=== PATIENT | female | born 1955 | race Caucasian/White ===

== ENCOUNTER 2023-02-25 12:58 | Inpatient (IN) | payer MEDICARE, OTHER ==
--- NOTE | 2023-02-25 13:16 | ED ---
General Adult HPI - General Chief complaint: Fall Stated complaint: Fall, hip fracture Time Seen by Provider: 02/25/23 13:06 Source: EMS Mode of arrival: EMS Limitations: no limitations - History of Present Illness Initial comments: Dictation was produced using [employer] dictation software. please excuse any grammatical, word or spelling errors. Chief Complaint: 67 yo F transferred to Hospital for left hip fracture History of Present Illness: 67-year-old female. She is a poor historian. Allegedly has past medical history of schizophrenia and psychiatric illness. Patient was discovered to have fallen earlier this morning upon waking up. Sister was at home according to transfer documentation and was suspicious that patient had fallen. She was taken to [facility] emergency Department were imaging and blood work was performed. She had a CT brain is negative. She was found to have a normally displaced left surgical left femoral hip fracture. Computed tomography scan of the brain was negative. Patient does not take coagu lation medications. No left hip pain. The ROS documented in this emergency department record has been reviewed and confirmed by me. Those systems with pertinent positive or negative responses have been documented in the HPI. All other systems are other negative and/or noncontributory. - Related Data Home Medications Medication Instructions Recorded Confirmed Benztropine Mesylate [Cogentin] 2 mg PO BID 02/25/23 02/25/23 LORazepam [Ativan] 0.5 mg PO BID 02/25/23 02/25/23 Multivit/Iron Sulf/Folic Acid 1 tab PO DAILY 02/25/23 02/25/23 [Multivitamin with Iron] Vitamin D3/Vitamin K2 (Mk4) 1 tab PO DAILY 02/25/23 02/25/23 [Vitamin K2 Plus D3 Tablet] carBAMazepine [carBAMazepine ER] 300 mg PO QID 02/25/23 02/25/23 haloperidoL [Haldol] 1 mg PO DAILY 02/25/23 02/25/23 haloperidoL [Haldol] 2 mg PO HS 02/25/23 02/25/23 Allergies Allergy/AdvReac Type Severity Reaction Status Date / Time Penicillins Allergy Unknown Verified 02/25/23 14:28 Review of Systems ROS Statement: Those systems with pertinent positive or pertinent negative responses have been documented in the HPI. ROS Other: All systems not noted in ROS Statement are negative. Past Medical History Past Medical History: Unable to Obtain History of Any Multi-Drug Resistant Organisms: Unobtainable Past Surgical History: Unable to Obtain Additional Past Surgical History / Comment(s): Left femoral head fracture Smoking Status: Unknown if ever smoked Past Alcohol Use History: Unable to Obtain Past Drug Use History: Unable to Obtain General Exam - General Exam Comments Initial Comments: PHYSICAL EXAM: General Impression: Alert and oriented x3, acute distress secondary to pain HEENT: Normocephalic atraumatic, extra-ocular movements intact, pupils equal and reactive to light bilaterally, mucous membranes moist. Cardiovascular: Heart regular rate and rhythm Chest: Able to complete full sentences, no retractions, no tachypnea Abdomen: abdomen soft, non-tender, non-distended, no organomegaly Musculoskeletal: Pulses present and equal in all extremities, no peripheral edema Motor: no focal deficits noted Neurological: CN II-XII grossly intact, no focal motor or sensory deficits noted Skin: Intact with no visualized rashes Psych: Normal affect and mood Limitations: no limitations Course Vital Signs 02/25/23 02/25/23 13:00 14:18 Temperature 98.5 F Pulse Rate 110 H 119 H Respiratory 16 20 Rate Blood Pressure 140/99 144/94 O2 Sat by Pulse 96 93 L Oximetry Medical Decision Making - Medical Decision Making Was pt. sent in by a medical professional or institution (, PA, GENETICS TEACHER, urgent care, hospital, or halfway...) When possible be specific @ -No Did you speak to anyone other than the patient for history (EMS, parent, family, police, friend...)? What history was obtained from this source @ -No Did you review nursing and triage notes (agree or disagree)? Why? @ -I reviewed and agree with nursing and triage notes Were old charts reviewed (outside hosp., previous admission, EMS record, old EKG, old radiological studies, urgent care reports/EKG's, halfway records)? Report findings @ -No old charts were reviewed Differential Diagnosis (chest pain, altered mental status, abdominal pain women, abdominal pain men, vaginal bleeding, musculoskeletal, weakness, fever, dyspnea, syncope, headache, dizziness, GI bleed, back pain, seizure, CVA, p alpatations, mental health)? @ -not applicable EKG interpreted by me (3pts min.). @ -None done X-rays interpreted by me (1pt min.). @ -Chest x-ray is nonacute. CT interpreted by me (1pt min.). @ -None done U/S interpreted by me (1pt. min.). @ -None done What testing was considered but not performed or refused? (CT, X-rays, U/S, labs)? Why? @ -None What meds were considered but not given or refused? Why? @ -None Did you discuss the management of the patient with other professionals (professionals i.e. , PA, GENETICS TEACHER, lab, RT, psych nurse, social work job titles, electrician helper powerhouse, teacher, investment officer, medical case worker)? Give summary @ -Up with orthopedic surgeon Dr. Grant who will take the patient later on this afternoon and accepting admission. Case discussed with Dr. Olvera who will medical care patient for surgical intervention soon. Was smoking cessation discussed for >3mins.? @ -No Was critical care preformed (if so, how long)? @ -No Were there social determinants of health that impacted care today? How? (Homelessness, low income, unemployed, alcoholism, drug addiction, transportation, low edu. Level, literacy, decrease access to med. care, group home, rehab)? @ -No Was there de-escalation of care discussed even if they declined (Discuss DNR or withdrawal of care, Hospice)? DNR status @ -No What co-morbidities impacted this encounter? (DM, HTN, Smoking, COPD, CAD, Cancer, CVA, ARF, Chemo, Hep., AIDS, mental health diagnosis, sleep apnea, m orbid obesity)? @ -None Was patient admitted / discharged? Hospital course, mention meds given and route, prescriptions, significant lab abnormalities, going to OR and other pertinent info. @ -67-year-old female presents emergency department via transfer from [facility] for left-sided femoral neck fracture. Vital signs stable. Patient be admitted to orthopedic surgery for further care. Undiagnosed new problem with uncertain prognosis? @ -No Drug Therapy requiring intensive monitoring for toxicity (Heparin, Nitro, Insulin, Cardizem)? @ -No Were any procedures done? @ -No Diagnosis/symptom? Acute, or Chronic, or Acute on Chronic? Uncomplicated (without systemic symptoms) or Complicated (systemic symptoms)? @ -hip fracture Side effects of treatment? @ -No Exacerbation, Progression, or Severe Exacerbation? @ -No Poses a threat to life or bodily function? How? (Chest pain, [place], NE, pneumonia, PE, COPD, DKA, ARF, appy, cholecystitis, CVA, Diverticulitis, Homicidal, Suicidal, threat to staff... and all critical care pts) @ -yes - Lab Data Result diagrams: 02/25/23 13:24 02/25/23 13:24 Lab Results 02/25/23 02/25/23 02/25/23 Range/Units 13:24 13:24 13:24 WBC 16.5 H (3.8-10.6) k/uL RBC 3.83 (3.80-5.40) m/uL Hgb 11.9 (11.4-16.0) gm/dL Hct 35.1 (34.0-46.0) % MCV 91.8 (80.0-100.0) fL MCH 31.1 (25.0-35.0) pg MCHC 33.9 (31.0-37.0) g/dL RDW 12.5 (11.5-15.5) % Plt Count 319 (150-450) k/uL MPV 7.1 Neutrophils % 93 % Lymphocytes % 3 % Monocytes % 2 % Eosinophils % 1 % Basophils % 0 % Neutrophils # 15.4 H (1.3-7.7) k/uL Lymphocytes # 0.5 L (1.0-4.8) k/uL Monocytes # 0.4 (0-1.0) k/uL Eosinophils # 0.2 (0-0.7) k/uL Basophils # 0.0 (0-0.2) k/uL PT 11.2 (10.0-12.5) sec INR 1.0 (<1.2) APTT 23.0 (22.0-30.0) sec Sodium 136 L (137-145) mmol/L Potassium 3.6 (3.5-5.1) mmol/L Chloride 100 (98-107) mmol/L Carbon Dioxide 25 (22-30) mmol/L Anion Gap 11 mmol/L BUN 12 (7-17) mg/dL Creatinine 0.41 L (0.52-1.04) mg/dL Est GFR (CKD-EPI)AfAm >90 (>60 ml/min/1.73 sqM) Est GFR (CKD-EPI)NonAf >90 (>60 ml/min/1.73 sqM) Glucose 122 H (74-99) mg/dL Calcium 9.7 (8.4-10.2) mg/dL Disposition Clinical Impression: Hip fracture Disposition: ADMITTED IP TO THIS HOSP Condition: Fair Referrals: Ismael Pardo MD [Primary Care Provider] - 1-2 days Decision Time: 14:29
[2023-02-25 13:48] LABS: Basophils % (A) 0 %; Eosinophils # (A) 0.2 k/uL (0-0.7); Eosinophils % (A) 1 %; HCT 35.1 % (34.0-46.0); HGB 11.9 gm/dL (11.4-16.0); Lymphocytes # (A) 0.5 k/uL (1.0-4.8); Lymphocytes % (A) 3 %; MCH 31.1 pg (25.0-35.0); MCHC 33.9 g/dL (31.0-37.0); MCV 91.8 fL (80.0-100.0); Mean Platelet Volume 7.1; Monocytes # (A) 0.4 k/uL (0-1.0); Monocytes % (A) 2 %; Neutrophils # (A) 15.4 k/uL (1.3-7.7); Neutrophils % (A) 93 %; Platelet Count 319 k/uL (150-450); RBC 3.83 m/uL (3.80-5.40); RDW 12.5 % (11.5-15.5); WBC 16.5 k/uL (3.8-10.6)
[2023-02-25 13:59] LABS: Prothrombin Time 11.2 sec (10.0-12.5)
--- NOTE | 2023-02-25 14:01 | XR ---
EXAMINATION TYPE: XR chest 1V portable DATE OF EXAM: 02/25/2023 1:30 PM CLINICAL INDICATION:Female, 67 years old with history of hip fracture; [facility] COMPARISON: 02/25/2023 TECHNIQUE: XR chest 1V portable Frontal view of the chest. FINDINGS: Lungs/Pleura: There is no evidence of pleural effusion, focal consolidation, or pneumothorax. Pulmonary vascularity: Unremarkable. Heart/mediastinum: Cardiomediastinal silhouette is unremarkable. Musculoskeletal: No acute osseous pathology. IMPRESSION: No acute cardiopulmonary disease/process.
[2023-02-25 14:02] LABS: African American GFR (CKD) >90 (>60 ml/min/1.73 sqM); Anion Gap 11 mmol/L; Blood Urea Nitrogen 12 mg/dL (7-17); Calcium 9.7 mg/dL (8.4-10.2); Carbon Dioxide 25 mmol/L (22-30); Chloride 100 mmol/L (98-107); Glucose 122 mg/dL (74-99); Non-African American GFR(CKD) >90 (>60 ml/min/1.73 sqM); Potassium 3.6 mmol/L (3.5-5.1); Sodium 136 mmol/L (137-145)
[2023-02-25] MEDS ORDERED: HYDROmorphone 1 MG/ML 1 ML SYRINGE IVP STA (14:24)
[2023-02-25] MEDS ORDERED: HYDROmorphone 1 MG/ML 1 ML SYRINGE IVP PRN (14:26)
[2023-02-25] MEDS ORDERED: NALOXONE 0.4 MG/ML 1 ML VIAL IV PRN ×2 (14:26→18:25)
--- NOTE | 2023-02-25 14:42 | P.EN ---
medically stable to proceed for surgery. low cardiovascular risk. sister helps with decision making full consult to follow
[2023-02-25] MEDS: SODIUM CHLORIDE 0.9% 1,000 ML IV SCH ×3 (15:05→22:17)
--- NOTE | 2023-02-25 15:28 | P.HPOR ---
History of Present Illness H&P Date: 02/25/23 The patient is a 67-year-old female with multiple medical problems including schizophrenia and seizure disorder who was accepted as a transfer from an outside facility with a left displaced femoral neck fracture. The history was given by the patient's sister as she is a very poor historian. According to the patient's sister she was at her baseline ambulatory status until this morning when she sustained an unwitnessed ground-level fall and was complaining of left hip pain and an inability to ambulate. She was brought to an outside ER where x-rays showed a displaced femoral neck fracture. At the time of my evaluation she is complaining of left-sided leg pain. At her baseline she lives at home with her sister, is a community ambulator, and does not work outside the home. The family denies prior left hip pain. Past Medical History Past Medical History: Unable to Obtain History of Any Multi-Drug Resistant Organisms: Unobtainable Past Surgical History: Unable to Obtain Additional Past Surgical History / Comment(s): Left femoral head fracture Smoking Status: Unknown if ever smoked Past Alcohol Use History: Unable to Obtain Past Drug Use History: Unable to Obtain Medications and Allergies Home Medications Medication Instructions Recorded Confirmed Type Benztropine Mesylate [Cogentin] 2 mg PO BID 02/25/23 02/25/23 History LORazepam [Ativan] 0.5 mg PO BID 02/25/23 02/25/23 History Multivit/Iron Sulf/Folic Acid 1 tab PO DAILY 02/25/23 02/25/23 History [Multivitamin with Iron] Vitamin D3/Vitamin K2 (Mk4) 1 tab PO DAILY 02/25/23 02/25/23 History [Vitamin K2 Plus D3 Tablet] carBAMazepine [carBAMazepine ER] 300 mg PO QID 02/25/23 02/25/23 History haloperidoL [Haldol] 1 mg PO DAILY 02/25/23 02/25/23 History haloperidoL [Haldol] 2 mg PO HS 02/25/23 02/25/23 History Allergies Allergy/AdvReac Type Severity Reaction Status Date / Time Penicillins Allergy Unknown Verified 02/25/23 14:28 Physical Examination The patient is resting on a hospital gurney. She is alert but is confused and is able to provide minimal history. Her head is normocephalic and atraumatic. She demonstrates nonlabored breathing. Her abdomen is nonobese and nontender. Her upper extremities are without deformity and nontender. Her right lower extremity is without deformity. A focused exam of the left lower extremity was conducted. On inspection there are no overlying skin lesions or areas of ecchymosis. The skin over the anterior aspect of the hip is intact. Left leg is slightly shortened and externally rotated. There is pain with any attempts at passive range of motion of the left hip. Her thigh is soft. Her foot is warm and well-perfused. She seems to be moving her foot up and down. Results X-rays uploaded to our system from outside hospital shows severe osteopenia and a displaced left subcapital femoral neck fracture - Labs Labs: Abnormal Lab Results - Last 24 Hours (Table) 02/25/23 02/25/23 Range/Units 13:24 13:24 WBC 16.5 H (3.8-10.6) k/uL Neutrophils # 15.4 H (1.3-7.7) k/uL Lymphocytes # 0.5 L (1.0-4.8) k/uL Sodium 136 L (137-145) mmol/L Creatinine 0.41 L (0.52-1.04) mg/dL Glucose 122 H (74-99) mg/dL H & H 02/25/23 Range/Units 13:24 Hgb 11.9 (11.4-16.0) gm/dL Hct 35.1 (34.0-46.0) % Coagulation 02/25/23 Range/Units 13:24 INR 1.0 (<1.2) Result Diagrams: 02/25/23 13:24 02/25/23 13:24 Assessment and Plan Assessment: Displaced subcapital femoral neck fracture Schizophrenia Severe osteoporosis Plan: I had a long discussion with the patient's sister regarding treatment options. Given her history of schizophrenia, confusion, severe osteopenia, and low functional demand as well as no antecedent hip pain my recommendation was to perform a direct anterior cemented hip hemiarthroplasty. We discussed the risks and complications of this at length particularly infection, delayed wound healing, periprosthetic fracture, prosthetic hip dislocation, progression of arthritis requiring conversion to total hip arthroplasty, failure to thrive, medical complications, and possibly . We both agreed that given her medical state and history of schizophrenia she would be best served with a hip hemiarthroplasty. She has been cleared by internal medicine and we will plan for surgery later this afternoon. Time with Patient: Greater than 30
[2023-02-25] MEDS ORDERED: LACTATED RINGERS 1,000 ML IV ONE ×2 (16:00→17:58)
[2023-02-25] MEDS ORDERED: TRANEXAMIC 1,000 MG/100ML-NACL 1,000 MG in SALINE 1 100ML.BAG IVPB STA ×2 (16:17→16:19)
[2023-02-25] MEDS ORDERED: ROCURONIUM 10 MG/ML (5 ML VIAL) IV ONE (16:22)
[2023-02-25] MEDS ORDERED: NEOSTIGMINE 1 MG/ML 10 ML VIAL ONE (16:22)
[2023-02-25] MEDS ORDERED: SUCCINYLCHOLINE CHLORIDE 200 MG/10 ML VIAL IV ONE (16:22)
[2023-02-25] MEDS ORDERED: fentaNYL (PF) 50 MCG/ML 2 ML AMP ONE (16:22)
[2023-02-25] MEDS ORDERED: LIDOCAINE 1% INJ 10MG/ML (20 ML MDV) ONE (16:22)
[2023-02-25] MEDS ORDERED: TRANEXAMIC 1,000 MG/100ML-NACL PREMIX BAG ONE (16:22)
[2023-02-25] MEDS ORDERED: PROPOFOL 10 MG/ML 20 ML VIAL IV ONE (16:22)
[2023-02-25] MEDS ORDERED: GLYCOPYRROLATE 0.2 MG/ML 2 ML VIAL ONE (16:22)
[2023-02-25] MEDS ORDERED: PHENYLEPHRINE-0.9% NACL SYG 1,000 MCG/10 ML SYRINGE ONE (16:22)
[2023-02-25] MEDS ORDERED: SODIUM CHLORIDE 0.9% 50 ML with ceFAZolin 2,000 MG IV ONE ×2 (16:45)
--- NOTE | 2023-02-25 17:03 | P.CONS ---
History of Present Illness - Reason for Consult Consult date: 02/25/23 Medical management Requesting physician: Nubia Valenzuela - Chief Complaint Fall - History of Present Illness This is a 67-year-old patient, follows with Dr. Pardo. Patient's sister is at the bedside. Also the POA. He is most a history. is also present. Patient lives the sister. Has a diagnosis schizophrenia possibly manic depressive bipolar. She is being managed previously by psychiatrist now by an aspect raised her. Normally able to get from the house and able to feed does help. Able to answer some simple questions. Patient fell up from bed this morning. It was discovered to have a left hip fracture. Patient other anxious right now not able to really answer questions. Complaining of pain in the left hip. No cardiac or respiratory history. No smoking history. According to his sister patient's psychiatrist symptoms are well-controlled on her current medications. Patient was transferred from [facility] facility that she has left neck femoral fracture with some displacement. Review of systems: GEN.: Tired EYES: None HEENT: None NECK: None RESPIRATORY: None CARDIOVASCULAR: None GASTROINTESTINAL: None GENITOURINARY: None MUSCULOSKELETAL: Joint pains LYMPHATICS: None HEMATOLOGICAL: None PSYCHIATRY: Anxious NEUROLOGICAL: None Social history: No smoking or alcohol. Lives with her sister and [id number]. Physical examination: VITAL SIGNS: 98.5, 110, 16, 140/99, 96% room air GENERAL: BMI 20.3, sitting up but anxious. EYES: Pupils equal. Conjunctiva normal. HEENT: External appearance of nose and ears normal, oral cavity grossly normal. NECK: JVD not raised; masses not palpable. HEART: First and second heart sounds are normal; no edema. LUNGS: Respiratory rate normal; clear to auscultation. ABDOMEN: Soft, nontender, liver spleen not palpable, no masses palpable. PSYCH: Not able to assess patient's extremely anxiousl. MUSCULOSKELETAL:No Clubbing/cyanosis;muscles-grossly intact. OA. Decreased range of motion left hip NEUROLOGICAL: Cranial nerves grossly intact; no facial asymmetry, power and sensation grossly intact. LYMPHATICS: No lymph nodes palpable in the axilla and neck INVESTIGATIONS, reviewed in the clinical context: White count 16.5 hemoglobin 11.9 platelets 319 sodium 136 potassium 3.6 BUN 12 creatinine 0.41 EKG tracing personally reviewed by me-sinus tachycardia rate 114. ST-T wave changes. Chest x-ray film personally reviewed by me-some hyperinflation Assessment and plan: -Left femoral neck fracture secondary to ground level fall. Unwitnessed. -Schizophrenia and possible manic depression Patient is followed by psychiatry PIPELINE OPERATOR Carbamazepine ER, Cogentin, Haldol, Ativan -Primary osteoarthritis Pain medication noted -POA, patient's sister Karyn Patient is a low risk for any perioperative cardiovascular risk. No cardiac medications to surgery. Denies any cardiac or respiratory symptoms or history. Care was discussed with the patient cysts of the bedside. Thank you Past Medical History Past Medical History: Unable to Obtain History of Any Multi-Drug Resistant Organisms: Unobtainable Past Surgical History: Unable to Obtain Additional Past Surgical History / Comment(s): Left femoral head fracture Smoking Status: Unknown if ever smoked Past Alcohol Use History: Unable to Obtain Past Drug Use History: Unable to Obtain Medications and Allergies Home Medications Medication Instructions Recorded Confirmed Type Benztropine Mesylate [Cogentin] 2 mg PO BID 02/25/23 02/25/23 History LORazepam [Ativan] 0.5 mg PO BID 02/25/23 02/25/23 History Multivit/Iron Sulf/Folic Acid 1 tab PO DAILY 02/25/23 02/25/23 History [Multivitamin with Iron] Vitamin D3/Vitamin K2 (Mk4) 1 tab PO DAILY 02/25/23 02/25/23 History [Vitamin K2 Plus D3 Tablet] carBAMazepine [carBAMazepine ER] 300 mg PO QID 02/25/23 02/25/23 History haloperidoL [Haldol] 1 mg PO DAILY 02/25/23 02/25/23 History haloperidoL [Haldol] 2 mg PO HS 02/25/23 02/25/23 History Allergies Allergy/AdvReac Type Severity Reaction Status Date / Time Penicillins Allergy Unknown Verified 02/25/23 14:28 Physical Exam Vitals: Vital Signs Temp Pulse Pulse Resp BP BP Pulse Ox 02/25/23 16:00 100.1 F H 106 H 16 128/86 91 L 02/25/23 15:05 125 H 18 136/96 93 L 02/25/23 14:18 119 H 20 144/94 93 L 02/25/23 13:00 98.5 F 110 H 16 140/99 96 Intake and Output 02/25/23 02/25/23 02/25/23 06:59 14:59 22:59 Intake Total 100 Balance 100 Intake: IV 100 Other: Weight 68.039 kg Results CBC & Chem 7: 02/25/23 13:24 02/25/23 13:24 Labs: Abnormal Lab Results - Last 24 Hours (Table) 02/25/23 02/25/23 Range/Units 13:24 13:24 WBC 16.5 H (3.8-10.6) k/uL Neutrophils # 15.4 H (1.3-7.7) k/uL Lymphocytes # 0.5 L (1.0-4.8) k/uL Sodium 136 L (137-145) mmol/L Creatinine 0.41 L (0.52-1.04) mg/dL Glucose 122 H (74-99) mg/dL
[2023-02-25] MEDS ORDERED: EPINEPHrine 2 MG in SODIUM CHLORIDE 0.9% 200 ML IV ONE (17:05)
[2023-02-25] MEDS: ROPIVACAINE/EPI/CLONIDINE/KET 50 ML SYRINGE MISCELLANE PRN ×2 (17:06→17:50)
[2023-02-25] MEDS ORDERED: MAGNESIUM HYDROXIDE 2,400 MG/30 ML CUP PO PRN (18:25)
[2023-02-25] MEDS ORDERED: HYDROcodone/APAP 5-325MG 1 EACH TAB PO PRN (18:25)
[2023-02-25] MEDS ORDERED: diazePAM 5 MG TAB PO PRN (18:25)
[2023-02-25] MEDS ORDERED: HYDROmorphone 0.5 MG/0.5 ML SYRINGE IVP PRN (18:25)
--- NOTE | 2023-02-25 18:25 | P.OP ---
Date of Procedure: 02/25/23 Preoperative Diagnosis: 1. Left displaced femoral neck fracture 2. Schizophrenia Postoperative Diagnosis: Same Procedure(s) Performed: Left direct anterior hip hemiarthroplasty Implants: [employer] accolade C size #4 standard offset, 56 mm outer diameter, 28 mm inner diameter bipolar femoral head with a -4 mm neck Anesthesia: VERNON Surgeon: Luis Enrique Grant Estimated Blood Loss (ml): 100 IV fluids (ml): 1,000 Pathology: other (Femoral head to pathology) Condition: stable Disposition: PACU Indications for Procedure: I met with the patient and their family to discuss treatment options. The patient has a displaced femoral neck fracture and based on their age, activity level, and medical comorbidities I recommended a hip hemiarthroplasty to facilitate early mobilization. My recommendation was to perform the hemiarthrop lasty through a direct anterior approach to help lower the risk of dislocation and improve postoperative recovery and use cemented fixation of the femoral component to reduce the risk of fracture and postoperative thigh pain. We discussed the potential risks and complications of a hemiarthroplasty for displaced femoral neck fracture at length. Risks discussed include are certainly not limited to risks from anesthesia, superficial infection requiring local wound care and possibly surgical debridement, deep periprosthetic joint infection and the treatment for this, damage to local blood vessels or nerves particularly the lateral femoral cutaneous nerve, intraoperative fracture, postoperative periprosthetic fracture, leg length discrepancy, hip dislocation, aseptic loosening, groin pain, thigh pain, progression of arthritis requiring conversion to total hip arthroplasty, complications related to cementing the component, an inability to regain preinjury level of function, DVT, PE, acute coronary event, stroke, pneumonia, urinary tract infection, failure to thrive, and possibly . The patient and their family understand that while these are the most common complications other less common complications are possible. They provided their verbal and written consent to go forward with surgery. Operative Findings: Displaced subcapital femoral neck fracture with acute hemarthrosis. Exceedingly poor bone quality Description of Procedure: The patient was identified in the preoperative holding area and the correct hip was marked with my initials. I reviewed the procedure and consent with the patient. All of their questions were answered. The patient was then brought back into the operating room by anesthesia. While on the [facility] anesthesia was administered by the anesthesia team. Preoperative antibiotics and tranexamic acid were also given. After the patient was under anesthesia I examined their ankles to determine their preoperative leg length discrepancy. The skin over the anterior aspect of the hip was shaved to remove hair over the site of planned incision. Both feet and ankles were padded with webril and boots for the [place] were applied. The patient was then carefully transferred onto the [place] table. A perineal post was immediately placed. The arms were placed on arm holders and were well-padded. Both boots were secured to the spars on the [place] table. The patient was positioned so that the pelvis was centered over the post. Nonsterile drapes were applied. A timeout was performed identifying the correct patient, operative extremity, and procedure. At this point fluoroscopy was brought in to take preoperative images of the pelvis and operative hip. A metallic bar was used to create a bi-ischial line for use as a reference to leg length adjustments during the procedure. Global offset was also measured on both the operative and nonoperative leg. Fluoroscopy was then brought out and a pre-scrub using a chlorhexidine scrub brush was performed. The operative limb was then prepped and draped in the standard sterile fashion. An anterior longitudinal incision was made lateral and distal to the ASIS. The skin and subcutaneous tissues were incised sharply. The underlying tensor fascia was identified and incised in its midportion. The fascia was dissected free from the underlying muscle and the muscle belly was retracted. A blunt tipped cobra retractor was placed over the superior neck under the muscle fibers of the gluteus minimus. The deep enveloping fascia of the tensor was incised. The anterior leash of vessels were then identified and cauterized. The fascia between the rectus and the capsule was then incised and the pre-capsular fat was excised. A second Cobra was placed inferior to the neck. The interval between the rectus and iliocapsularis and the hip capsule was developed and a retractor was placed carefully over the anterior rim of the acetabulum. A T-shaped anterior capsulotomy was performed. A hemarthrosis consistent with a femoral neck fracture was identified. The superior capsular leaflet was left in place in the inferior capsular flap was excised. The Cobra retractors were placed intracapsularly. A displaced femoral neck fracture was then identified. We then made a femoral neck osteotomy according to preoperative and intraoperative templating and confirmed the level of the osteotomy using fluoroscopic imaging. The femoral head was removed, passed off to the back table, and sized. The superior capsular flap was excised. On inspection of the acetabulum there were minimal degenerative changes with intact cartilage. Attention was then turned to the femur. The remnant dorsal lateral capsule was excised. The short external rotators were visible and protected. A bone hook was used to confirm appropriate translation of the trochanter away from the acetabulum. The leg was then extended and adducted and the bone hook was used to elevate the femur for broaching. A box osteotome and blunt tipped canal sound was then utilized to gain access to the femoral canal. We then sequentially broached the femur in appropriate anteversion until torsional stability was achieved and the implant was felt to have reached the appropriate size to allow trialing. The neck cut was brought flush to the trial broach with a calcar planar. A trial neck and head were then placed onto the broach and the hip was atraumatically reduced under direct visualization. External rotation to 90 was performed to assess stability. Fluoroscopy was brought in. An AP and lateral fluoroscopic image of the proximal femur was obtained to assess position and fill of the trial broach. An AP of the pelvis was then obtained and matched to the preoperative image taken. A bi-ischial bar was then placed and measurements were taken to assess changes in length and offset. The hip was then carefully dislocated, the proximal femur was exposed, and the trial implants were removed. The proximal femur was then prepared for cementing. The canal was thoroughly irrigated with pulsatile lavage to remove blood and marrow contents. A cement restrictor was placed to a depth just distal to the tip of the final implant. Epinephrine-soaked gauze was then packed into the proximal femur. 2 bags of cement with antibiotics were then mixed using a centrifuge and placed into a cement gun. Anesthesia was notified that cementing was about to commence to make sure the patient was appropriately ventilated and hydrated. Once the cement had reached appropriate consistency, the cement gun was used to fill the canal in a retrograde fashion starting at the restrictor. Cement was then pressurized into the canal with a blue tipped marine service manager. The stem was then carefully introduced into the cement taking care to guide the implant into appropriate version. The stem was held in position until the cement had fully set. All extra cement was removed while the cement was hardening. The trunnion was cleansed and the final head was tapped into place to engage the Li taper. The acetabulum was irrigated and visualized to be free of debris. The hip was carefully reduced. Stability was checked clinically with external rotation to 90 and there was no evidence of instability. Final fluoroscopic images were taken. The wound was then thoroughly irrigated with Irrisept. 3 L of sterile saline was irrigated through the wound using pulsatile lavage. Local anesthetic cocktail was injected into the soft tissues around the surgical field. The w ound was then closed in layers. A sterile dressing was placed over the surgical incision. The drapes were taken down and the patient was carefully transferred off of the [place] table. Following removal of the boots the leg lengths felt acceptable. The patient was then taken to recovery room having tolerated the procedure well. PLAN: The patient can weight-bear as tolerated on the operative extremity. 2 doses of postoperative antibiotics. DVT prophylaxis with aspirin 81 mg twice a day based on preoperative risk stratification. Physical therapy for gait training.
--- NOTE | 2023-02-25 18:30 | FL ---
EXAMINATION TYPE: FL guidance operating room, XR Hip Limited LT Intraoperative/procedural fluoroscopi c services were provided. Total fluoroscopy time is 22.8 seconds with a total of 7 submitted images t o PACS. Please see the operative/procedural note for further details. DAP: 0.5822 Gycm2
[2023-02-25] MEDS: carBAMazepine 300 MG CPMP.12HR PO SCH ×3 (20:09→22:14)
[2023-02-25] MEDS: ASPIRIN 81 MG PO SCH (22:13)
[2023-02-25] MEDS: SENNOSIDES-DOCUSATE SODIUM 1 EACH TAB PO SCH (22:13)
[2023-02-25] MEDS: LORazepam 0.5 MG TAB PO SCH (22:13)
[2023-02-25] MEDS: haloperidoL 1 MG TAB PO SCH (22:14)
[2023-02-25] MEDS: BENZTROPINE MESYLATE 1 MG TAB PO SCH (22:14)
[2023-02-25] MEDS: HYDROcodone/APAP 10-325MG 1 EACH TAB PO PRN (22:22)
[2023-02-26] MEDS: SODIUM CHLORIDE 0.9% 1,000 ML IV SCH ×6 (04:38→23:54)
--- NOTE | 2023-02-26 08:14 | P.PN ---
Subjective Progress Note Date: 02/26/23 Patient has no complaints this morning. She is asking for her breakfast tray. She says her hip doesn't hurt. She also states she doesn't want to go to rehab or nursing facility. Objective - Vital Signs Vital signs: Vital Signs Temp 98.2 F 02/26/23 00:56 Pulse 97 02/26/23 00:56 Resp 18 02/26/23 00:56 BP 114/77 02/26/23 00:56 Pulse Ox 95 02/26/23 00:56 FiO2 Intake & Output 02/25/23 02/26/23 02/26/23 18:59 06:59 18:59 Intake Total 1401 Output Total 750 325 Balance 651 -325 Weight 68.039 kg Intake: IV 1401 Output: Urine 650 325 Estimated Blood Loss 100 Other: Voiding Method Indwelling Catheter - Exam The patient is resting in her bed. She is alert and able to answer questions. She is in no apparent distress. A focused exam of the left lower extremity was conducted. On inspection there is no intact dressing with no drainage or strike through. Her thigh is soft. Femoral nerve function is intact. He is able to actively plantarflex and dorsiflex her ankle and toes. - Labs CBC & Chem 7: 02/25/23 13:24 02/25/23 13:24 Labs: Abnormal Lab Results - Last 24 Hours (Table) 02/25/23 02/25/23 Range/Units 13:24 13:24 WBC 16.5 H (3.8-10.6) k/uL Neutrophils # 15.4 H (1.3-7.7) k/uL Lymphocytes # 0.5 L (1.0-4.8) k/uL Sodium 136 L (137-145) mmol/L Creatinine 0.41 L (0.52-1.04) mg/dL Glucose 122 H (74-99) mg/dL Assessment and Plan Assessment: Postoperative day #1 status post left direct anterior hip hemiarthroplasty, doing well Schizophrenia Advanced osteoporosis Plan: 1. Weight-bear as tolerated left lower extremity, up with assistance and a walker 2. DVT prophylaxis with aspirin 81 mg twice a day 3. 2 doses of postoperative antibiotics 4. Discharge Joyner catheter when able 5. Appreciate internal medicine's assistance with uriel-operative medical management 6. Physical therapy for gait training 7. Dispo: Discharge planning is in process. The patient will likely benefit from discharged to rehab or prison facility.
[2023-02-26] MEDS: ASPIRIN 81 MG PO SCH ×2 (08:18→20:37)
[2023-02-26] MEDS: MULTIVITAMINS, THERA 1 EACH TAB PO SCH (08:18)
[2023-02-26] MEDS: carBAMazepine 300 MG CPMP.12HR PO SCH ×4 (08:18→20:37)
[2023-02-26] MEDS: LORazepam 0.5 MG TAB PO SCH ×2 (08:18→20:37)
[2023-02-26] MEDS: BENZTROPINE MESYLATE 1 MG TAB PO SCH ×2 (08:18→20:34)
[2023-02-26] MEDS: haloperidoL 1 MG TAB PO SCH ×2 (08:19→20:36)
[2023-02-26] MEDS ORDERED: NON FORMULARY DRUG (Vitamin D3/Vitamin K2 (Mk4) [Vitamin K2 Plus D3 Tablet] 1 EACH Tablet) PO SCH (09:00)
[2023-02-26 10:11] LABS: Basophils # (A) 0.02 X 10*3/uL (0.00-0.10); Basophils % (A) 0.2 %; Eosinophils # (A) 0 X 10*3/uL (0.04-0.35); Eosinophils % (A) 0 %; HGB 8.9 g/dL (12.0-15.0); Lymphocytes # (A) 0.73 X 10*3/uL (0.90-5.00); Lymphocytes % (A) 8.6 %; MCH 31.1 pg (27.0-32.0); MCV 94.4 FL (80.0-97.0); Monocytes % (A) 4.7 %; NRBC Per 100 WBC 0 X 10*3/uL (0.00-0.01); Platelet Count 227 X 10*3/uL (140-440); RBC 2.86 X 10*6/uL (4.10-5.20); RDW 12.8 % (11.5-14.5); WBC 8.49 X 10*3/uL (4.50-10.00)
[2023-02-26] MEDS: HYDROcodone/APAP 10-325MG 1 EACH TAB PO PRN (14:50)
[2023-02-26] MEDS: SODIUM FERRIC GLUCONAT-SUCROSE 125 MG in SODIUM CHLORIDE 0.9% 100 ML IVPB SCH (15:32)
[2023-02-26] MEDS: SENNOSIDES-DOCUSATE SODIUM 1 EACH TAB PO SCH (20:37)
--- NOTE | 2023-02-26 22:16 | P.PN ---
Progress Note - Text Progress Note Date: 02/26/23 - Chief Complaint Fall - History of Present Illness This is a 67-year-old patient, follows with Dr. Pardo. Patient's sister is at the bedside. Also the POA. He is most a history. is also present. Patient lives the sister. Has a diagnosis schizophrenia possibly manic depressive bipolar. She is being managed previously by psychiatrist now by an aspect raised her. Normally able to get from the house and able to feed does help. Able to answer some simple questions. Patient fell up from bed this morning. It was discovered to have a left hip fracture. Patient other anxious right now not able to really answer questions. Complaining of pain in the left hip. No cardiac or respiratory history. No smoking history. According to his sister patient's psychiatrist symptoms are well-controlled on her current medications. Patient was transferred from [facility] facility that she has left neck femoral fracture with some displacement. 02/26/2023: Yesterday patient underwent hip hemiarthroplasty. Some pain present . Patient smoked communicating today. Wanted to go to sister's place. Reassured. Eating about 50%. Active Medications Hydrocodone Bitart/Acetaminophen (Hydrocodone/Apap 5-325mg 1 Each Tab) 1 each PO Q6HR PRN PRN Reason: Pain Scale 1 to 5 Hydrocodone Bitart/Acetaminophen (Hydrocodone/Apap 10-325mg 1 Each Tab) 1 each PO Q6H PRN PRN Reason: Pain Scale 6 to 10 Last Admin: 02/26/23 14:50 Dose: 1 each Aspirin (Aspirin 81 Mg) 81 mg PO BID [facility] Last Admin: 02/26/23 20:37 Dose: 81 mg Benztropine Mesylate (Benztropine Mesylate 1 Mg Tab) 2 mg PO BID [facility] Last Admin: 02/26/23 20:34 Dose: 2 mg Carbamazepine (Carbamazepine 300 Mg Cpmp.12hr) 300 mg PO QID [facility] Last Admin: 02/26/23 20:37 Dose: 300 mg Diazepam (Diazepam 5 Mg Tab) 2.5 mg PO Q8HR PRN PRN Reason: Mild Spasms Haloperidol (Haloperidol 1 Mg Tab) 1 mg PO DAILY [facility] Last Admin: 02/26/23 08:19 Dose: 1 mg Haloperidol (Haloperidol 1 Mg Tab) 2 mg PO HS [facility] Last Admin: 02/26/23 20:36 Dose: 2 mg Hydromorphone HCl (Hydromorphone 1 Mg/Ml 1 Ml Syringe) 1 mg IVP Q3HR PRN PRN Reason: Severe Pain (Scale 7 to 10) Hydromorphone HCl (Hydromorphone 0.5 Mg/0.5 Ml Syringe) 0.5 mg IVP Q3HR PRN PRN Reason: Pain Scale 7 to 10 Hydroxyzine Pamoate (Hydroxyzine Pamoate 25 Mg Cap) 25 mg PO Q4HR PRN PRN Reason: Nausea, Anxiety, Pain Control Sodium Chloride (Saline 0.9%) 1,000 mls @ 130 mls/hr IV .Q7H42M [facility] Last Admin: 02/26/23 15:32 Dose: Not Given Sodium Chloride (Saline 0.9%) 1,000 mls @ 100 mls/hr IV .Q10H [facility] Last Admin: 02/26/23 15:32 Dose: 100 mls/hr Ferric Sodium Gluconate 125 mg (/ Sodium Chloride) 110 mls @ 100 mls/hr IVPB DAILY [facility] Stop: 02/27/23 10:05 Last Admin: 02/26/23 15:32 Dose: 100 mls/hr Lorazepam (Lorazepam 0.5 Mg Tab) 0.5 mg PO BID [facility] Last Admin: 02/26/23 20:37 Dose: 0.5 mg Magnesium Hydroxide (Magnesium Hydroxide 2,400 Mg/30 Ml Cup) 2,400 mg PO DAILY PRN PRN Reason: Constipation Multivitamins (Multivitamins, Thera 1 Each Tab) 1 each PO DAILY [facility] Last Admin: 02/26/23 08:18 Dose: 1 each Naloxone HCl (Naloxone 0.4 Mg/Ml 1 Ml Vial) 0.2 mg IV Q2M PRN PRN Reason: Opioid Reversal Naloxone HCl (Naloxone 0.4 Mg/Ml 1 Ml Vial) 0.2 mg IV Q2M PRN PRN Reason: Opioid Reversal Senna/Docusate Sodium (Sennosides-Docusate Sodium 1 Each Tab) 2 each PO HS [facility] Last Admin: 02/26/23 20:37 Dose: 2 each Social history: No smoking or alcohol. Lives with her sister and [id number]. Physical examination: VITAL SIGNS: 98.4, 86, 17, 120/78, 94% room air GENERAL: Planning a bit slightly anxious EYES: Pupils equal. Conjunctiva normal. HEENT: External appearance of nose and ears normal, oral cavity grossly normal. NECK: JVD not raised; masses not palpable. HEART: First and second heart sounds are normal; no edema. LUNGS: Respiratory rate normal; clear to auscultation. ABDOMEN: Soft, nontender, liver spleen not palpable, no masses palpable. PSYCH: Vision able to do simple conversation. Anxious. MUSCULOSKELETAL:No Clubbing/cyanosis;muscles-grossly intact. OA. Dressing over the incision site INVESTIGATIONS, reviewed in the clinical context: 02/26/2022: White count 8.4 hemoglobin 8.9 platelets 227 White count 16.5 hemoglobin 11.9 platelets 319 sodium 136 potassium 3.6 BUN 12 creatinine 0.41 EKG tracing personally reviewed by me-sinus tachycardia rate 114. ST-T wave changes. Chest x-ray film personally reviewed by me-some hyperinflation Assessment and plan: -Left femoral neck fracture secondary to ground level fall. Unwitnessed. Left hip hemiarthroplasty [facility] on February 25. Aspirin For DVT prophylaxis -Schizophrenia and possible manic depression Patient is followed by psychiatry ESTIMATOR Carbamazepine ER, Cogentin, Haldol, Ativan -Acute postprocedure blood loss anemia expected from surgery IV Ferrlecit 2 dose -Primary osteoarthritis Pain medication noted -POA, patient's sister Karyn IV Ferrlecit. Patient reassured. Thank you Past Medical History Past Medical History: Unable to Obtain History of Any Multi-Drug Resistant Organisms: Unobtainable Past Surgical History: Unable to Obtain Additional Past Surgical History / Comment(s): Left femoral head fracture Smoking Status: Unknown if ever smoked Past Alcohol Use History: Unable to Obtain Past Drug Use History: Unable to Obtain
[2023-02-27] MEDS: SODIUM CHLORIDE 0.9% 1,000 ML IV SCH ×5 (05:51→20:38)
[2023-02-27] MEDS: ASPIRIN 81 MG PO SCH ×2 (07:46→20:37)
[2023-02-27] MEDS: LORazepam 0.5 MG TAB PO SCH ×2 (07:46→20:37)
[2023-02-27] MEDS: MULTIVITAMINS, THERA 1 EACH TAB PO SCH (07:46)
[2023-02-27] MEDS: BENZTROPINE MESYLATE 1 MG TAB PO SCH ×2 (07:47→20:37)
[2023-02-27] MEDS: carBAMazepine 300 MG CPMP.12HR PO SCH ×4 (07:47→20:37)
[2023-02-27] MEDS: haloperidoL 1 MG TAB PO SCH ×2 (07:47→20:37)
[2023-02-27] MEDS: HYDROcodone/APAP 10-325MG 1 EACH TAB PO PRN ×2 (09:06→23:40)
[2023-02-27] MEDS: hydrOXYzine pamoate 25 MG CAP PO PRN ×2 (09:07→23:40)
[2023-02-27] MEDS: SODIUM FERRIC GLUCONAT-SUCROSE 125 MG in SODIUM CHLORIDE 0.9% 100 ML IVPB SCH (09:08)
--- NOTE | 2023-02-27 09:50 | P.PN ---
Subjective Progress Note Date: 02/27/23 Complains of mild discomfort in the left leg. She is otherwise without complaints. Objective - Vital Signs Vital signs: Vital Signs Temp 99.0 F 02/27/23 08:27 Pulse 86 02/27/23 08:27 Resp 17 02/27/23 08:27 BP 136/74 02/27/23 08:27 Pulse Ox 96 02/27/23 08:27 FiO2 Intake & Output 02/26/23 02/27/23 02/27/23 18:59 06:59 18:59 Output Total 1200 2600 Balance -1200 -2600 Weight 68.039 kg Output: Urine 1200 2600 Other: Voiding Method Indwelling Catheter Indwelling Catheter - Exam The patient is sitting up in bed. She is alert and able to answer questions. A focused exam of the left lower extremity was conducted. On inspection there is no intact dressing over the anterior aspect of the left hip with no drainage or strike through. Her thigh is soft. Femoral nerve function is intact. She is able to actively plantarflex and dorsiflex her ankle and her toes. - Labs CBC & Chem 7: 02/26/23 06:22 02/25/23 13:24 Labs: Abnormal Lab Results - Last 24 Hours (Table) 02/26/23 Range/Units 06:22 RBC 2.86 L (4.10-5.20) X 10*6/uL Hgb 8.9 L (12.0-15.0) g/dL Hct 27.0 L (37.2-46.3) % Lymphocytes # 0.73 L (0.90-5.00) X 10*3/uL Eosinophils # 0 L (0.04-0.35) X 10*3/uL Assessment and Plan Assessment: Postoperative day #2 status post left direct anterior hip hemiarthroplasty, doing well Schizophrenia Osteoporosis Plan: Continue treatment as outlined yesterday. Weightbearing as tolerated left lower extremity up with assistance and a walker. We'll try to mobilize out of bed into a chair today. Discontinue Joyner catheter. DVT prophylaxis with aspirin 81 mg twice a day. Appreciate internal medicine's perioperative medical assistance. Discharge planning is in process and the patient will likely need discharge to [facility] facility or rehab.
--- NOTE | 2023-02-27 17:02 | P.PN ---
Progress Note - Text Progress Note Date: 02/27/23 - Chief Complaint Fall - History of Present Illness This is a 67-year-old patient, follows with Dr. Pardo. Patient's sister is at the bedside. Also the POA. He is most a history. is also present. Patient lives the sister. Has a diagnosis schizophrenia possibly manic depressive bipolar. She is being managed previously by psychiatrist now by an aspect raised her. Normally able to get from the house and able to feed does help. Able to answer some simple questions. Patient fell up from bed this morning. It was discovered to have a left hip fracture. Patient other anxious right now not able to really answer questions. Complaining of pain in the left hip. No cardiac or respiratory history. No smoking history. According to his sister patient's psychiatrist symptoms are well-controlled on her current medications. Patient was transferred from [facility] facility that she has left neck femoral fracture with some displacement. 02/26/2023: Yesterday patient underwent hip hemiarthroplasty. Some pain present . Patient smoked communicating today. Wanted to go to sister's place. Reassured. Eating about 50%. 02/27/2023: Sitting up in a chair. Pain control. Keen to go home. Reassured. Answering questions appropriately. Active Medications Hydrocodone Bitart/Acetaminophen (Hydrocodone/Apap 5-325mg 1 Each Tab) 1 each PO Q6HR PRN PRN Reason: Pain Scale 1 to 5 Hydrocodone Bitart/Acetaminophen (Hydrocodone/Apap 10-325mg 1 Each Tab) 1 each PO Q6H PRN PRN Reason: Pain Scale 6 to 10 Last Admin: 02/27/23 09:06 Dose: 1 each Aspirin (Aspirin 81 Mg) 81 mg PO BID [facility] Last Admin: 02/27/23 07:46 Dose: 81 mg Benztropine Mesylate (Benztropine Mesylate 1 Mg Tab) 2 mg PO BID [facility] Last Admin: 02/27/23 07:47 Dose: 2 mg Carbamazepine (Carbamazepine 300 Mg Cpmp.12hr) 300 mg PO QID [facility] Last Admin: 02/27/23 16:58 Dose: 300 mg Diazepam (Diazepam 5 Mg Tab) 2.5 mg PO Q8HR PRN PRN Reason: Mild Spasms Haloperidol (Haloperidol 1 Mg Tab) 1 mg PO DAILY [facility] Last Admin: 02/27/23 07:47 Dose: 1 mg Haloperidol (Haloperidol 1 Mg Tab) 2 mg PO HS [facility] Last Admin: 02/26/23 20:36 Dose: 2 mg Hydromorphone HCl (Hydromorphone 1 Mg/Ml 1 Ml Syringe) 1 mg IVP Q3HR PRN PRN Reason: Severe Pain (Scale 7 to 10) Hydromorphone HCl (Hydromorphone 0.5 Mg/0.5 Ml Syringe) 0.5 mg IVP Q3HR PRN PRN Reason: Pain Scale 7 to 10 Hydroxyzine Pamoate (Hydroxyzine Pamoate 25 Mg Cap) 25 mg PO Q4HR PRN PRN Reason: Nausea, Anxiety, Pain Control Last Admin: 02/27/23 09:07 Dose: 25 mg Sodium Chloride (Saline 0.9%) 1,000 mls @ 130 mls/hr IV .Q7H42M [facility] Last Admin: 02/27/23 12:36 Dose: Not Given Sodium Chloride (Saline 0.9%) 1,000 mls @ 100 mls/hr IV .Q10H [facility] Last Admin: 02/27/23 10:54 Dose: Not Given Lorazepam (Lorazepam 0.5 Mg Tab) 0.5 mg PO BID [facility] Last Admin: 02/27/23 07:46 Dose: 0.5 mg Magnesium Hydroxide (Magnesium Hydroxide 2,400 Mg/30 Ml Cup) 2,400 mg PO DAILY PRN PRN Reason: Constipation Multivitamins (Multivitamins, Thera 1 Each Tab) 1 each PO DAILY [facility] Last Admin: 02/27/23 07:46 Dose: 1 each Naloxone HCl (Naloxone 0.4 Mg/Ml 1 Ml Vial) 0.2 mg IV Q2M PRN PRN Reason: Opioid Reversal Naloxone HCl (Naloxone 0.4 Mg/Ml 1 Ml Vial) 0.2 mg IV Q2M PRN PRN Reason: Opioid Reversal Senna/Docusate Sodium (Sennosides-Docusate Sodium 1 Each Tab) 2 each PO HS [facility] Last Admin: 02/26/23 20:37 Dose: 2 each Social history: No smoking or alcohol. Lives with her sister and [id number]. Physical examination: VITAL SIGNS: 99.7, 82, 13, 143/81, 98% room air GENERAL: Eating up in a chair, comfortable EYES: Pupils equal. Conjunctiva normal. HEENT: External appearance of nose and ears normal, oral cavity grossly normal. NECK: JVD not raised; masses not palpable. HEART: First and second heart sounds are normal; no edema. LUNGS: Respiratory rate normal; clear to auscultation. ABDOMEN: Soft, nontender, liver spleen not palpable, no masses palpable. PSYCH: Answering questions appropriately. Anxious. MUSCULOSKELETAL:No Clubbing/cyanosis;muscles-grossly intact. OA. Dressing over the incision site INVESTIGATIONS, reviewed in the clinical context: 02/26/2022: White count 8.4 hemoglobin 8.9 platelets 227 White count 16.5 hemoglobin 11.9 platelets 319 sodium 136 potassium 3.6 BUN 12 creatinine 0.41 EKG tracing personally reviewed by me-sinus tachycardia rate 114. ST-T wave changes. Chest x-ray film personally reviewed by me-some hyperinflation Assessment and plan: -Left femoral neck fracture secondary to ground level fall. Unwitnessed. Left hip hemiarthroplasty [facility] on February 25. Aspirin For DVT prophylaxis -Schizophrenia and possible manic depression Patient is followed by psychiatry [employer] Carbamazepine ER, Cogentin, Haldol, Ativan -Acute postprocedure blood loss anemia expected from surgery IV Ferrlecit 2 dose -Primary osteoarthritis Pain medication noted -POA, patient's sister Karyn Thank you Past Medical History Past Medical History: Unable to Obtain History of Any Multi-Drug Resistant Organisms: Unobtainable Past Surgical History: Unable to Obtain Additional Past Surgical History / Comment(s): Left femoral head fracture Smoking Status: Unknown if ever smoked Past Alcohol Use History: Unable to Obtain Past Drug Use History: Unable to Obtain
[2023-02-27] MEDS: SENNOSIDES-DOCUSATE SODIUM 1 EACH TAB PO SCH (20:37)
[2023-02-28] MEDS: hydrOXYzine pamoate 25 MG CAP PO PRN (03:33)
[2023-02-28] MEDS: SODIUM CHLORIDE 0.9% 1,000 ML IV SCH ×5 (05:29→20:54)
[2023-02-28] MEDS: HYDROcodone/APAP 10-325MG 1 EACH TAB PO PRN ×2 (06:47→16:45)
[2023-02-28] MEDS: BENZTROPINE MESYLATE 1 MG TAB PO SCH ×2 (07:58→20:54)
[2023-02-28] MEDS: MULTIVITAMINS, THERA 1 EACH TAB PO SCH (07:59)
[2023-02-28] MEDS: carBAMazepine 300 MG CPMP.12HR PO SCH ×4 (07:59→20:54)
[2023-02-28] MEDS: haloperidoL 1 MG TAB PO SCH ×2 (07:59→20:54)
[2023-02-28] MEDS: LORazepam 0.5 MG TAB PO SCH ×2 (07:59→20:54)
[2023-02-28] MEDS: ASPIRIN 81 MG PO SCH ×2 (07:59→20:54)
--- NOTE | 2023-02-28 09:30 | P.PN ---
Subjective Progress Note Date: 02/28/23 Principal diagnosis: Left femoral neck fracture. Status post hemiarthroplasty left hip with direct anterior approach. This is a 67-year-old female who is status post hemiarthroplasty of the left hip with direct anterior approach secondary to femoral neck fracture. She is postop day #3 today. She has no new complaints or concerns today. She denies nausea, vomiting or diarrhea. She's had no fever or chills. Vital signs are stable. Objective - Vital Signs Vital signs: Vital Signs Temp 98.2 F 02/28/23 07:05 Pulse 91 02/28/23 07:05 Resp 18 02/28/23 07:05 BP 153/92 02/28/23 07:05 Pulse Ox 96 02/28/23 07:05 FiO2 Intake & Output 02/27/23 02/28/23 02/28/23 18:59 06:59 18:59 Output Total 3000 400 Balance -3000 -400 Output: Urine 3000 400 Other: Voiding Method Indwelling Catheter Indwelling Catheter # Voids 1 - Exam This is a pleasant 67-year-old female in no acute distress. She is alert and oriented at this time. Exam of the left lower extremity reveals that her dressing is clean, dry and intact. She has full foot and ankle motion bilaterally. Neurovascular status to the lower extremities is intact. No calf pain with palpation. - Labs CBC & Chem 7: 02/26/23 06:22 02/25/23 13:24 Assessment and Plan (1) Fracture of femoral neck, left Current Visit: Yes Status: Acute Code(s): S72.002A - FRACTURE OF UNSP PART OF NECK OF LEFT FEMUR, INIT SNOMED Code(s): 5868961 (2) Status post hip hemiarthroplasty Current Visit: Yes Status: Acute Code(s): Z96.649 - PRESENCE OF UNSPECIFIED ARTIFICIAL HIP JOINT SNOMED Code(s): 555869101 Plan: The clinical findings are discussed with the patient. Continue ambulation with assistance. Planning discharge to inpatient rehab versus home with home care tomorrow.
[2023-02-28 10:35] LABS: Basophils # (A) 0.03 X 10*3/uL (0.00-0.10); Basophils % (A) 0.6 %; Eosinophils # (A) 0.12 X 10*3/uL (0.04-0.35); Eosinophils % (A) 2.4 %; HCT 25.7 % (37.2-46.3); HGB 8.8 g/dL (12.0-15.0); Lymphocytes # (A) 0.64 X 10*3/uL (0.90-5.00); Lymphocytes % (A) 12.6 %; MCH 31.2 pg (27.0-32.0); MCHC 34.2 g/dL (32.0-37.0); MCV 91.1 FL (80.0-97.0); Mean Platelet Volume 10.5 FL (9.5-12.2); Monocytes # (A) 0.39 X 10*3/uL (0.20-1.00); Monocytes % (A) 7.7 %; NRBC Per 100 WBC 0 X 10*3/uL (0.00-0.01); Neutrophils # (A) 3.88 X 10*3/uL (1.80-7.70); Neutrophils % (A) 76.3 %; Platelet Count 206 X 10*3/uL (140-440); RBC 2.82 X 10*6/uL (4.10-5.20); RDW 12.3 % (11.5-14.5); WBC 5.08 X 10*3/uL (4.50-10.00)
--- NOTE | 2023-02-28 18:35 | P.PN ---
Progress Note - Text Progress Note Date: 02/28/23 - Chief Complaint Fall - History of Present Illness This is a 67-year-old patient, follows with Dr. Pardo. Patient's sister is at the bedside. Also the POA. He is most a history. is also present. Patient lives the sister. Has a diagnosis schizophrenia possibly manic depressive bipolar. She is being managed previously by psychiatrist now by an aspect raised her. Normally able to get from the house and able to feed does help. Able to answer some simple questions. Patient fell up from bed this morning. It was discovered to have a left hip fracture. Patient other anxious right now not able to really answer questions. Complaining of pain in the left hip. No cardiac or respiratory history. No smoking history. According to his sister patient's psychiatrist symptoms are well-controlled on her current medications. Patient was transferred from [facility] facility that she has left neck femoral fracture with some displacement. 02/26/2023: Yesterday patient underwent hip hemiarthroplasty. Some pain present . Patient smoked communicating today. Wanted to go to sister's place. Reassured. Eating about 50%. 02/27/2023: Sitting up in a chair. Pain control. Keen to go home. Reassured. Answering questions appropriately. 02/28/2023: Up in a chair. Oral intake fair. Pain control. Keen to the discharge. Reassured. Active Medications Hydrocodone Bitart/Acetaminophen (Hydrocodone/Apap 5-325mg 1 Each Tab) 1 each PO Q6HR PRN PRN Reason: Pain Scale 1 to 5 Hydrocodone Bitart/Acetaminophen (Hydrocodone/Apap 10-325mg 1 Each Tab) 1 each PO Q6H PRN PRN Reason: Pain Scale 6 to 10 Last Admin: 02/28/23 16:45 Dose: 1 each Aspirin (Aspirin 81 Mg) 81 mg PO BID [facility] Last Admin: 02/28/23 07:59 Dose: 81 mg Benztropine Mesylate (Benztropine Mesylate 1 Mg Tab) 2 mg PO BID [facility] Last Admin: 02/28/23 07:58 Dose: 2 mg Carbamazepine (Carbamazepine 300 Mg Cpmp.12hr) 300 mg PO QID [facility] Last Admin: 02/28/23 16:45 Dose: 300 mg Diazepam (Diazepam 5 Mg Tab) 2.5 mg PO Q8HR PRN PRN Reason: Mild Spasms Last Admin: 02/28/23 03:33 Dose: 2.5 mg Haloperidol (Haloperidol 1 Mg Tab) 1 mg PO DAILY [facility] Last Admin: 02/28/23 07:59 Dose: 1 mg Haloperidol (Haloperidol 1 Mg Tab) 2 mg PO HS [facility] Last Admin: 02/27/23 20:37 Dose: 2 mg Hydromorphone HCl (Hydromorphone 1 Mg/Ml 1 Ml Syringe) 1 mg IVP Q3HR PRN PRN Reason: Severe Pain (Scale 7 to 10) Hydromorphone HCl (Hydromorphone 0.5 Mg/0.5 Ml Syringe) 0.5 mg IVP Q3HR PRN PRN Reason: Pain Scale 7 to 10 Hydroxyzine Pamoate (Hydroxyzine Pamoate 25 Mg Cap) 25 mg PO Q4HR PRN PRN Reason: Nausea, Anxiety, Pain Control Last Admin: 02/28/23 03:33 Dose: 25 mg Sodium Chloride (Saline 0.9%) 1,000 mls @ 130 mls/hr IV .Q7H42M [facility] Last Admin: 02/28/23 12:56 Dose: Not Given Sodium Chloride (Saline 0.9%) 1,000 mls @ 100 mls/hr IV .Q10H [facility] Last Admin: 02/28/23 16:48 Dose: Not Given Lorazepam (Lorazepam 0.5 Mg Tab) 0.5 mg PO BID [facility] Last Admin: 02/28/23 07:59 Dose: 0.5 mg Magnesium Hydroxide (Magnesium Hydroxide 2,400 Mg/30 Ml Cup) 2,400 mg PO DAILY PRN PRN Reason: Constipation Multivitamins (Multivitamins, Thera 1 Each Tab) 1 each PO DAILY [facility] Last Admin: 02/28/23 07:59 Dose: 1 each Naloxone HCl (Naloxone 0.4 Mg/Ml 1 Ml Vial) 0.2 mg IV Q2M PRN PRN Reason: Opioid Reversal Naloxone HCl (Naloxone 0.4 Mg/Ml 1 Ml Vial) 0.2 mg IV Q2M PRN PRN Reason: Opioid Reversal Senna/Docusate Sodium (Sennosides-Docusate Sodium 1 Each Tab) 2 each PO HS [facility] Last Admin: 02/27/23 20:37 Dose: 2 each Social history: No smoking or alcohol. Lives with her sister and [id number]. Physical examination: VITAL SIGNS: 98.4, 99, 18, 11 6 x 77, 95% room air GENERAL: Sitting up in a chair, comfortable EYES: Pupils equal. Conjunctiva normal. HEENT: External appearance of nose and ears normal, oral cavity grossly normal. NECK: JVD not raised; masses not palpable. HEART: First and second heart sounds are normal; no edema. LUNGS: Respiratory rate normal; clear to auscultation. ABDOMEN: Soft, nontender, liver spleen not palpable, no masses palpable. PSYCH: Answering questions appropriately. Anxious. MUSCULOSKELETAL:No Clubbing/cyanosis;muscles-grossly intact. OA. Dressing over the incision site INVESTIGATIONS, reviewed in the clinical context: 02/28/2023: Hemoglobin 8.8 02/26/2022: White count 8.4 hemoglobin 8.9 platelets 227 White count 16.5 hemoglobin 11.9 platelets 319 sodium 136 potassium 3.6 BUN 12 creatinine 0.41 EKG tracing personally reviewed by me-sinus tachycardia rate 114. ST-T wave changes. Chest x-ray film personally reviewed by me-some hyperinflation Assessment and plan: -Left femoral neck fracture secondary to ground level fall. Unwitnessed. Left hip hemiarthroplasty [facility] on February 25. 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 Thank you Past Medical History Past Medical History: Unable to Obtain History of Any Multi-Drug Resistant Organisms: Unobtainable Past Surgical History: Unable to Obtain Additional Past Surgical History / Comment(s): Left femoral head fracture Smoking Status: Unknown if ever smoked Past Alcohol Use History: Unable to Obtain Past Drug Use History: Unable to Obtain
[2023-02-28] MEDS: SENNOSIDES-DOCUSATE SODIUM 1 EACH TAB PO SCH (20:54)
[2023-03-01] MEDS: SODIUM CHLORIDE 0.9% 1,000 ML IV SCH ×4 (02:36→13:47)
[2023-03-01] MEDS: MULTIVITAMINS, THERA 1 EACH TAB PO SCH (08:43)
[2023-03-01] MEDS: ASPIRIN 81 MG PO SCH (08:43)
[2023-03-01] MEDS: LORazepam 0.5 MG TAB PO SCH (08:43)
[2023-03-01] MEDS: BENZTROPINE MESYLATE 1 MG TAB PO SCH (08:43)
[2023-03-01] MEDS: haloperidoL 1 MG TAB PO SCH (08:44)
[2023-03-01] MEDS: carBAMazepine 300 MG CPMP.12HR PO SCH ×2 (08:44→12:57)
[2023-03-01 09:03] VITALS: BP 124/84; PULSE 79; RESP 15; TEMP 99.6
--- NOTE | 2023-03-01 09:08 | P.DS ---
Providers Date of admission: 02/25/23 14:26 Expected date of discharge: 03/01/23 Attending physician: Luis Enrique Grant Consults: 02/25/23 14:25 Consult Physician Routine Consulting Provider: Kwaku Olvera Consult Reason/Comments: medical clearance Do you want consulting provider notified?: Already Contacted Primary care physician: Ismael Pardo - Discharge Diagnosis(es) (1) Fracture of femoral neck, left Current Visit: Yes Status: Acute (2) Status post hip hemiarthroplasty Current Visit: Yes Status: Acute Hospital Course: This is a 67-year-old female who presented on 02/25/2023 after falling and sustaining injury to the left hip. On exam and x-ray in the emergency department she was found to have a hip fracture. The pt is admitted to our service for surgical intervention and care. The patient is taken to surgery for hemiarthroplasty of the right hip with strict anterior approach. The procedure is performed without complication or sequelae. The patient is doing well postoperatively. Vital signs are stable on postop day #4. There are no new complaints or concerns. The patient is discharged to inpatient rehab pending medical clearance today. Please refer to the [facility] rec for accurate list of medications. Patient Condition at Discharge: Fair Plan - Discharge Summary New Discharge Prescriptions: New Sennosides-Docusate Sodium [Senokot-S] 2 each PO HS tab HYDROcodone/APAP 5-325MG [Prospect 5-325] 1 - 2 tab PO Q6HR PRN #32 tab PRN Reason: Pain Aspirin 81 mg PO BID #60 tab Omeprazole 40 mg PO DAILY #30 cap Diclofenac Sodium [Voltaren] 75 mg PO BID #60 tab Continue Multivit/Iron Sulf/Folic Acid [Multivitamin with Iron] 1 tab PO DAILY haloperidoL [Haldol] 1 mg PO DAILY carBAMazepine [carBAMazepine ER] 300 mg PO QID haloperidoL [Haldol] 2 mg PO HS Benztropine Mesylate [Cogentin] 2 mg PO BID Vitamin D3/Vitamin K2 (Mk4) [Vitamin K2 Plus D3 Tablet] 1 tab PO DAILY No Action LORazepam [Ativan] 0.5 mg PO BID Discharge Medication List Benztropine Mesylate [Cogentin] 2 mg PO BID 02/25/23 [History] LORazepam [Ativan] 0.5 mg PO BID 02/25/23 [History] Multivit/Iron Sulf/Folic Acid [Multivitamin with Iron] 1 tab PO DAILY 02/25/23 [History] Vitamin D3/Vitamin K2 (Mk4) [Vitamin K2 Plus D3 Tablet] 1 tab PO DAILY 02/25/23 [History] carBAMazepine [carBAMazepine ER] 300 mg PO QID 02/25/23 [History] haloperidoL [Haldol] 1 mg PO DAILY 02/25/23 [History] haloperidoL [Haldol] 2 mg PO HS 02/25/23 [History] Aspirin 81 mg PO BID #60 tab 02/26/23 [Rx] Diclofenac Sodium [Voltaren] 75 mg PO BID #60 tab 02/26/23 [Rx] HYDROcodone/APAP 5-325MG [Prospect 5-325] 1 - 2 tab PO Q6HR PRN #32 tab 02/26/23 [Rx] Omeprazole 40 mg PO DAILY #30 cap 02/26/23 [Rx] Sennosides-Docusate Sodium [Senokot-S] 2 each PO HS tab 02/28/23 [Rx] Follow up Appointment(s)/Referral(s): Ismael Pardo MD [Primary Care Provider] - 1-2 days Luis nErique Grant MD [Medical Doctor] - 2 Weeks Activity/Diet/Wound Care/Special Instructions: 1. Weight-bear as tolerated on your operative extremity unless instructed otherwise. Use a walker or other assistive device to ambulate. 2. Leave surgical dressing in place. If your dressing becomes saturated with blood, there is drainage, or the dressing becomes loose please contact the office. 3. It is okay to shower with your surgical dressing, but do not submerge in water (no hot tubs, baths, swimming etc.) 4. Make sure to take your blood clot prevention medication as prescribed (aspirin, Eliquis, Xarelto, and Plavix are commonly prescribed medications for blood clot prevention) 5. While taking Prospect or Percocet for pain make sure you're taking a stool softener (Colace) and drink lots of water. 6. Keep all follow-up appointments as scheduled. You will usually be seen in 1-2 weeks following surgery. 7. Please contact the office with any questions or concerns [phone] Discharge Disposition: TRANSFER TO SNF/ECF
--- NOTE | 2023-03-01 19:06 | P.PN ---
Progress Note - Text Progress Note Date: 03/01/23 - Chief Complaint Fall - History of Present Illness This is a 67-year-old patient, follows with Dr. Pardo. Patient's sister is at the bedside. Also the POA. He is most a history. is also present. Patient lives the sister. Has a diagnosis schizophrenia possibly manic depressive bipolar. She is being managed previously by psychiatrist now by an aspect raised her. Normally able to get from the house and able to feed does help. Able to answer some simple questions. Patient fell up from bed this morning. It was discovered to have a left hip fracture. Patient other anxious right now not able to really answer questions. Complaining of pain in the left hip. No cardiac or respiratory history. No smoking history. According to his sister patient's psychiatrist symptoms are well-controlled on her current medications. Patient was transferred from [facility] facility that she has left neck femoral fracture with some displacement. 02/26/2023: Yesterday patient underwent hip hemiarthroplasty. Some pain present . Patient smoked communicating today. Wanted to go to sister's place. Reassured. Eating about 50%. 02/27/2023: Sitting up in a chair. Pain control. Keen to go home. Reassured. Answering questions appropriately. 02/28/2023: Up in a chair. Oral intake fair. Pain control. Keen to the discharge. Reassured. 03/01/2023: Up in a chair." In good spirits. Going to rehab today. Eating fair. Current medications reviewed Social history: No smoking or alcohol. Lives with her sister and [id number]. Physical examination: VITAL SIGNS: 99.6, 79, 15, 124/84, 100% room air GENERAL: Sitting up in a chair, comfortable EYES: Pupils equal. Conjunctiva normal. HEENT: External appearance of nose and ears normal, oral cavity grossly normal. NECK: JVD not raised; masses not palpable. HEART: First and second heart sounds are normal; no edema. LUNGS: Respiratory rate normal; clear to auscultation. ABDOMEN: Soft, nontender, liver spleen not palpable, no masses palpable. PSYCH: Answering questions appropriately. Anxious. MUSCULOSKELETAL:No Clubbing/cyanosis;muscles-grossly intact. OA. Dressing over the incision site INVESTIGATIONS, reviewed in the clinical context: 02/28/2023: Hemoglobin 8.8 02/26/2022: White count 8.4 hemoglobin 8.9 platelets 227 White count 16.5 hemoglobin 11.9 platelets 319 sodium 136 potassium 3.6 BUN 12 creatinine 0.41 EKG tracing personally reviewed by me-sinus tachycardia rate 114. ST-T wave changes. Chest x-ray film personally reviewed by me-some hyperinflation Assessment and plan: -Left femoral neck fracture secondary to ground level fall. Unwitnessed. Left hip hemiarthroplasty [facility] on February 25. Aspirin For DVT prophylaxis -Schizophrenia and possible manic depression Patient is followed by psychiatry [employer] Carbamazepine ER, Cogentin, Haldol, Ativan -Acute postprocedure blood loss anemia expected from surgery IV Ferrlecit 2 dose oral iron -Primary osteoarthritis Pain medication as needed -POA, patient's sister Karyn Continue current medications. Going to rehab. Thank you Past Medical History Past Medical History: Unable to Obtain History of Any Multi-Drug Resistant Organisms: Unobtainable Past Surgical History: Unable to Obtain Additional Past Surgical History / Comment(s): Left femoral head fracture Smoking Status: Unknown if ever smoked Past Alcohol Use History: Unable to Obtain Past Drug Use History: Unable to Obtain
== END 2023-03-01 15:59 | DRG 522 ==
LOC: EC 12:58 → 4SSUR 14:26
PROVIDERS: ADMIT Orthopaedic Surgery; ATTEND Orthopaedic Surgery
PROC: 3E0T3BZ Introduction of Anesthetic Agent into Peripheral Nerves and Plexi, Percutaneous Approach (ICD-10-PCS; 2023-02-25)
PROC: 0SRS0JZ Replacement of Left Hip Joint, Femoral Surface with Synthetic Substitute, Open Approach (ICD-10-PCS; principal; 2023-02-25 09:45)
DX: S72.012A Unspecified intracapsular fracture of left femur, initial encounter for closed fracture (principal); D62 Acute posthemorrhagic anemia; F33.9 Major depressive disorder, recurrent, unspecified; M81.0 Age-related osteoporosis without current pathological fracture; F20.9 Schizophrenia, unspecified; M19.91 Primary osteoarthritis, unspecified site; Z88.0 Allergy status to penicillin; F41.9 Anxiety disorder, unspecified; G40.909 Epilepsy, unspecified, not intractable, without status epilepticus; W18.30XA Fall on same level, unspecified, initial encounter; Z79.82 Long term (current) use of aspirin; Z79.899 Other long term (current) drug therapy; Z96.649 Presence of unspecified artificial hip joint
CPT/HCPCS: 36415; 71045; 73501; 80048; 82306; 85025; 85610; 85730; 88305; 88311; 93005; 96361; 96374; 99285